=== PATIENT | male | born 1955 | race Native Hawaiian/Other Pacific Islander ===

== ENCOUNTER 2018-07-16 08:00 | Day surgery (SDC) | payer BC ==
[2018-07-09 09:41] VITALS: BMI 26.2
[2018-07-16 08:54] LABS: BASO # 0.05 K/mm3 (0.0-2.0); BASO % 0.6 % (0.0-3.0); EOS # 0.3 (0.0-0.7); EOS % 3.5 % (1.5-5.0); HEMOGLOBIN 15.6 g/dL (14.0-18.0); LYMPH # 4.2 (1.2-3.4); LYMPH % 52.3 % (22.0-35.0); MEAN CELL VOLUME 89.4 fl (80.0-105.0); MEAN CORPUSCULAR HEMOGLOBIN 30.7 pg (25.0-35.0); MEAN CORPUSCULAR HGB CONC 34.4 g/dl (31.0-37.0); MEAN PLATELET VOLUME 11.3 fl (7.0-11.0); MONO # 0.7 (0.1-0.6); MONO % 8.7 % (1.0-6.0); RBC 5.08 10^6/uL (3.5-6.1); RED CELL DISTRIBUTION WIDTH 12.6 % (11.5-14.5); WHITE BLOOD COUNT 8.1 10^3/uL (4.5-11.0)
[2018-07-16 09:02] LABS: BLOOD UREA NITROGEN 14 mg/dL (7-21); CALCIUM 9.9 mg/dL (8.4-10.5); GFR NON-AFRICAN AMERICAN > 60
[2018-07-16 09:04] LABS: INR 1.09; PARTIAL THROMBOPLASTIN TIME 39.2 Seconds (26.9-38.3); PROTHROMBIN TIME 12.3 SECONDS (9.4-12.5)
[2018-07-16] MEDS ORDERED: Midazolam 2 MG/2 ML VIAL ONE (11:38)
[2018-07-16] MEDS ORDERED: Lidocaine 1% 5ml Abboject ONE (11:39)
[2018-07-16] MEDS ORDERED: Midazolam 5 MG/5 ML VIAL IVP ONE (12:15)
[2018-07-16] MEDS ORDERED: Oxycodone/Acetaminophen 5/325 mg Tab PO PRN (12:34)
[2018-07-16] MEDS ORDERED: Sodium Chloride 0.45% 1,000 ML IV SCH (12:45)
[2018-07-16 13:30] VITALS: TEMP 97.4; O2SAT 97
--- NOTE | 2018-07-16 13:41 | US ---
PROCEDURE: Ultrasound-guided left axillary lymph node fine needle aspiration CLINICAL HISTORY: Enlarged 2.5 cm left axillary lymph node with hypervascularity. Evaluate for malignancy PHYSICIAN(S): Delroy Carroll M.D. TECHNIQUE: The relative risks and indications for the procedure were explained to the patient and his and consent obtained. The patient was placed supine on the stretcher with the left arm abducted and preliminary sonography of the left axilla performed. This revealed a oblong 2.5 cm hypoechoic lymph node in the left axilla with hyper vascularity The left axilla was prepped and draped usual sterile fashion. Conscious sedation monitoring were provided throughout the procedure by a nurse. Under ultrasound guidance, 3 passes with a 21 gauge echogenic needle was performed of the 2.5 cm left axillary lymph node. The specimens were sent for cytology. The patient tolerated the procedure well IMPRESSION: 1. Ultrasound guided fine needle aspiration of a 2.5 cm hypervascular left axillary lymph node
[2018-07-16 13:52] VITALS: BP 144/79; PULSE 77; RESP 16
== END 2018-07-16 13:55 | disposition home or self-care (01) ==
LOC: SDS 08:00
PROVIDERS: ATTEND Radiology Vascular & Interventional Radiology
DX: R59.0 Localized enlarged lymph nodes (principal); I10 Essential (primary) hypertension; I25.10 Atherosclerotic heart disease of native coronary artery without angina pectoris; E11.9 Type 2 diabetes mellitus without complications; Z79.4 Long term (current) use of insulin
CPT/HCPCS: 10005; 36415; 80048; 85025; 85610; 85730; 88173; 88305; 99152; 99153; J2250 ×2; J2405; J3010; J7030